=== PATIENT | female | born 1995 | race Caucasian/White ===

== ENCOUNTER 2020-03-15 05:32 | Emergency (ER) | payer BC, OTHER ==
[~2020-03-15] VITALS: Ht 167.6 cm; Wt 100.3 kg
[2020-03-15] MEDS ORDERED: MULTTAB20 PO (05:42)
[2020-03-15 06:34] LABS: BASO # 0.1 10^3/uL (0.0-0.2); BASO % 0.6 % (0.0-1.0); EOS # 0.1 10^3/uL (0.0-0.5); EOS % 0.9 % (0.0-3.0); HEMOGLOBIN 14.7 g/dl (12.0-15.5); LYMPH # 2.2 10^3/uL (1.5-5.0); LYMPH % 25.2 % (24.0-44.0); MEAN CORPUSCULAR HEMOGLOBIN 28.3 pg (27.0-33.0); MEAN CORPUSCULAR HGB CONC 33.4 g/dl (32.0-36.5); MEAN CORPUSCULAR VOLUME 84.8 fl (80.0-96.0); MONO # 0.6 10^3/uL (0.0-0.8); MONO % 6.5 % (0.0-5.0); NEUTROPHILS # 5.7 10^3/uL (1.5-8.5); NEUTROPHILS % 66.5 % (36.0-66.0); PLATELET COUNT, AUTOMATED 301 10^3/uL (150-450); RED BLOOD COUNT 5.19 10^6/uL (4.00-5.40); WHITE BLOOD COUNT 8.6 10^3/uL (4.0-10.0)
[2020-03-15 06:58] LABS: BLOOD UREA NITROGEN 17 MG/DL (7-18); CALCIUM LEVEL 8.9 MG/DL (8.5-10.1); CARBON DIOXIDE LEVEL 28 MEQ/L (21-32); CHLORIDE LEVEL 107 MEQ/L (98-107); CREATININE FOR GFR 0.87 MG/DL (0.55-1.30); GLOMERULAR FILTRATION RATE > 60.0 (>60); GLUCOSE, FASTING 106 MG/DL (70-100); HCG, SERUM QUANTITATIVE 8 MIU/ML; SODIUM LEVEL 142 MEQ/L (136-145)
--- NOTE | 2020-03-15 07:27 | REPVR ---
PROCEDURE INFORMATION: Exam: US First Trimester, Transabdominal Exam date and time: 03/15/2020 6:46 AM Age: 24 years old Clinical indication: Lmp or gestational age (in weeks): 01/15/20; Antepartum complications; Bleeding; ; Additional info: Vaginal bleeding, pelvic cramping, 8 weeks preg TECHNIQUE: Imaging protocol: Real-time transabdominal obstetrical ultrasound of the maternal pelvis and a first trimester , less than 14 weeks 0 days, with image documentation. COMPARISON: No relevant prior studies available. FINDINGS: Uterus: Uterus is unremarkable measuring 8.1 x 4.2 x 5.2 cm. No intrauterine is seen. Endometrial stripe is thickened measuring 12.7 mm. Cervix: Unremarkable. Right adnexa: Right ovary is measuring 3.2 x 1.8 x 2.2 cm. Dominant follicle in the right ovary measuring 8.5 x 6.4 x 8.3 mm. Normal vascular flow is seen. Left adnexa: Left ovary is unremarkable measuring 4.4 x 2.4 x 2.8 cm. Normal vascular flow is seen. Intraperitoneal space: No intraperitoneal free fluid. IMPRESSION: No intrauterine gestational sac is seen. Mildly thickened endometrial stripe measuring 12.7 mm. Dominant follicle in right ovary. No ovarian torsion. No free fluid. Electronically signed by: Nathaly Loaiza On 03/15/2020 07:26:53 AM
[2020-03-15 08:00] VITALS: BP 134/87
--- OUTSIDE RECORDS SUMMARY | 2020-03-15 08:00 | CCD ---
Author Author [facility] Address Unknown Phone Unavailable Support Name Relationship Address Phone UE Next Of Kin Unknown Unavailable Re-disclosure Warning The records that you are about to access may contain information from federally-assisted alcohol or drug abuse programs. If such information is present, then the following federally mandated warning applies: This information has been disclosed to you from records protected by federal confidentiality rules (42 CFR part 2). The federal rules prohibit you from making any further disclosure of this information unless further disclosure is expressly permitted by the written consent of the person to whom it pertains or as otherwise permitted by 42 CFR part 2. A general authorization for the release of medical or other information is NOT sufficient for this purpose. The Federal rules restrict any use of the information to criminally investigate or prosecute any alcohol or drug abuse patient.The records that you are about to access may contain highly sensitive health information, the redisclosure of which is protected by Article 27-F of the [facility] Public Health law. If you continue you may have access to information: Regarding HIV / AIDS; Provided by facilities licensed or operated by the [facility] Office of Mental Health; or Provided by the [facility] Office for People With Developmental Disabilities. If such information is present, then the following [facility] mandated warning applies: This information has been disclosed to you from confidential records which are protected by state law. State law prohibits you from making any further disclosure of this information without the specific written consent of the person to whom it pertains, or as otherwise permitted by law. Any unauthorized further disclosure in violation of state law may result in a fine or chcf sentence or both. A general authorization for the release of medical or other information is NOT sufficient authorization for further disc losure. Insurance Providers Payer name Policy type / Coverage type Policy ID Covered libertarian ID Covered libertarian's relationship to garcia Policy Garcia Plan Information [facility] [id number] [facility] [id number]
[2020-03-15] MEDS ORDERED: CEPH500T PO (08:02)
== END 2020-03-15 08:18 | disposition home or self-care (01) ==
LOC: M ED 05:32
DX: O20.0 Threatened abortion (principal); O36.80X0 Pregnancy with inconclusive fetal viability, not applicable or unspecified; Z3A.08 8 weeks gestation of pregnancy